=== PATIENT | female | born 1960 | race Caucasian/White ===

== ENCOUNTER 2020-03-17 16:20 | Emergency (ER) | payer BC ==
[2020-03-17 16:48] LABS: Blood, Urine Large (Negative); Clarity Cloudy (Clear); Glucose, Urine (Dipstick) 100 mg/dL (Negative); Leukocyte Large (Negative); Protein, Urine (Dipstick) 100 mg/dL (Neg-Trace)
[2020-03-17 16:57] LABS: Bilirubin Unable to Interpret (Negative); Urobilinogen UNABLE TO INTERPRET mg/dL (Less than 2)
[2020-03-17 16:58] LABS: Nitrite Unable to Interpret (Negative)
[2020-03-17 16:59] LABS: Bacteria/HPF 1+ HPF (None Seen); RBC/HPF Greater than 50 HPF (0-3); Squamous Epithelial None Seen HPF (0-3); WBC/HPF Greater Than 50 HPF (0-3)
[2020-03-17] MEDS ORDERED: Sulfameth/Trimethoprim DS 800-160mg TAB ONE (17:08)
== END 2020-03-17 17:15 | disposition home or self-care (01) ==
LOC: MADERS 16:20
DX: N39.0 Urinary tract infection, site not specified (principal); I10 Essential (primary) hypertension; Z79.899 Other long term (current) drug therapy
CPT/HCPCS: 81003; 81015; 99283

== ENCOUNTER 2024-12-25 11:22 | Emergency (ER) | payer BC ==
[2024-12-25 12:07] LABS: Bilirubin Negative (Negative); Blood, Urine Large (Negative); Glucose, Urine (Dipstick) Negative (Negative); Ketone, Urine Negative (Negative); Leukocyte Large (Negative); Nitrite Negative (Negative); Protein, Urine (Dipstick) 100 mg/dL (Neg-Trace); Urobilinogen 0.2 mg/dL (Less than 2); pH, Urine 6.5 (5.0-9.0)
[2024-12-25 12:10] LABS: Clarity Cloudy (Clear)
[2024-12-25 12:14] LABS: Bacteria/HPF 2+ HPF (None Seen); CAUTI Indications for Culture Acute Hematuria; RBC/HPF Greater than 50 HPF (0-3); Urine Culture Reflex Yes Yes; WBC/HPF Greater Than 50 HPF (0-3)
[2024-12-25] MEDS ORDERED: Nitrofurantoin Monohyd/M-Cryst 100 MG CAP ONE (12:36)
== END 2024-12-25 12:43 | disposition home or self-care (01) ==
LOC: MADERS 11:22
DX: N39.0 Urinary tract infection, site not specified (principal); I10 Essential (primary) hypertension
CPT/HCPCS: 81001; 87077; 87086; 87186; 99283